=== PATIENT | female | born 1970 | race American Indian/Alaskan Native ===

== ENCOUNTER 2017-07-02 11:59 | Emergency (ER) | payer MEDICAID | END 2017-07-02 12:15 | disposition left against medical advice (07) | LOC: ED 11:59 | DX: I10 Essential (primary) hypertension (principal); Z53.21 Procedure and treatment not carried out due to patient leaving prior to being seen by health care provider ==

== ENCOUNTER 2018-04-13 10:43 | Emergency (ER) | payer MEDICAID ==
[2018-04-13 11:38] LABS: Bacteria,Urine 1+ /HPF (Negative); Bilirubin,Urine NEG (Negative); Blood,Urine NEG (Negative); Color,Urine Yellow (Yellow); Mucus,Urine FEW /HPF; Protein,Urine <15 mg/dL mg/dL (Negative); Urobilinogen,Urine < 2.0 mg/dL (<2.0)
[2018-04-13] MEDS ORDERED: ZOFRAN IM ONE (12:10)
[2018-04-13] MEDS ORDERED: MORPHINE IM ONE (12:10)
--- NOTE | 2018-04-13 12:15 | Emergency Department Report ---
ED Back Pain/Injury HPI - General Chief Complaint: Back Pain/Injury Stated Complaint: LOWER BACK PAIN/PELVIC PAIN Time Seen by Provider: 04/13/18 11:59 Source: patient Limitations: No Limitations - History of Present Illness Initial Comments: Patient is 47 years old female, morbidly obese, history of hypertension. Patient presented to the ER complaining of right flank pain that radiated down to right hip. Patient stated that pain started yesterday all of a sudden while she is sitting. Patient denied any injury. Patient denied hematuria, urinary frequency or dysuria. No nausea or vomiting. MD Complaint: back pain -: Last night Similar Symptoms Previously: No Place: home Radiation: none Severity: moderate Severity scale (0 -10): 6 Quality: sharp Consistency: intermittent Improves With: immobilization Worsens With: movement Associated Symptoms: denies other symptoms - Related Data Home Medications Medication Instructions Recorded Confirmed Last Taken Triamter/Hctz 37.5-25 mg 1 tab PO QDAY 04/10/15 04/15/15 04/15/15 05:00 [Maxzide-25] Previous Rx's Medication Instructions Recorded Last Taken Type HYDROcodone/APAP 5-325 [[place] 1 - 2 each PO Q4HR PRN #30 tablet 04/15/15 Unknown Rx 5/325] Allergies Allergy/AdvReac Type Severity Reaction Status Date / Time No Known Allergies Allergy Verified 04/13/18 10:51 ED Review of Systems ROS: Stated complaint: LOWER BACK PAIN/PELVIC PAIN Other details as noted in HPI Comment: All other systems reviewed and negative Constitutional: denies: chills, diaphoresis, fever, malaise Respiratory: denies: cough, orthopnea, shortness of breath, SOB with exertion Cardiovascular: denies: chest pain, palpitations, dyspnea on exertion, orthopnea Gastrointestinal: denies: abdominal pain, nausea, vomiting, diarrhea, constipation, hematemesis, melena, hematochezia Genitourinary: denies: urgency, dysuria Musculoskeletal: back pain Neurological: denies: headache, weakness, numbness, paresthesias, confusion, abnormal gait ED Past Medical Hx - Past Medical History Previous Medical History?: No Hx Hypertension: Yes Hx Asthma: No (Previous mold exposure, uses occ Albuterol inhaler PRN) Additional medical history: uterine ca - Surgical History Additional Surgical History: hysterectomy - Social History Smoking Status: Never Smoker Substance Use Type: None - Medications Home Medications: Home Medications Medication Instructions Recorded Confirmed Last Taken Type Triamter/Hctz 37.5-25 mg 1 tab PO QDAY 04/10/15 04/15/15 04/15/15 05:00 History [Maxzide-25] HYDROcodone/APAP 5-325 [[place] 1 - 2 each PO Q4HR PRN #30 tablet 04/15/15 Unknown Rx 5/325] ED Physical Exam - General Limitations: No Limitations General appearance: alert, in no apparent distress - Head Head exam: Present: atraumatic, normocephalic, normal inspection - Eye Eye exam: Present: normal appearance - ENT ENT exam: Present: normal exam, normal orophraynx, mucous membranes moist - Neck Neck exam: Present: normal inspection, full ROM. Absent: tenderness, meningismus, lymphadenopathy, thyromegaly - Respiratory Respiratory exam: Present: normal lung sounds bilaterally. Absent: respiratory distress, wheezes, rales, rhonchi, stridor, chest wall tenderness, accessory muscle use, decreased breath sounds, prolonged expiratory - Cardiovascular Cardiovascular Exam: Present: regular rate, normal rhythm, normal heart sounds - GI/Abdominal GI/Abdominal exam: Present: soft, normal bowel sounds. Absent: distended, tende rness, guarding, rebound, rigid, organomegaly, mass, bruit, pulsatile mass, hernia - Extremities Exam Extremities exam: Present: normal inspection, full ROM, normal capillary refill - Back Exam Back exam: Present: normal inspection, full ROM, CVA tenderness (R). Absent: tenderness, CVA tenderness (L), muscle spasm, paraspinal tenderness, vertebral tenderness - Neurological Exam Neurological exam: Present: alert, oriented X3, CN II-XII intact, normal gait, reflexes normal - Psychiatric Psychiatric exam: Present: normal affect, normal mood - Skin Skin exam: Present: warm, intact, normal color ED Course Vital Signs 04/13/18 04/13/18 10:51 14:06 Temperature 97.4 F L Pulse Rate 65 71 Respiratory 20 16 Rate Blood Pressure 177/106 Blood Pressure 138/75 [Left] O2 Sat by Pulse 98 98 Oximetry ED Medical Decision Making - Lab Data Result diagrams: 04/13/18 12:21 04/13/18 12:21 - Radiology Data Radiology results: report reviewed Referring Physician: MONO EDWARD Patient Name: RENETTA BURCH Date of : 1970 Sex: Female Report Date: 2018-04-13 Report Status: Finalized Findings [facility] [address] [place] [address] Cat Scan Report Signed Patient: RENETTA BURCH MR#: [id number] : 1970 Acct:[id number] Age/Sex: 47 / F ADM Date: 04/13/18 Loc: ED Attending Dr: Ordering Physician: MONO EDWARD Date of Service: 04/13/18 Procedure(s): CT abdomen pelvis wo con Accession Number(s): [id number] cc: MONO EDWARD CT ABDOMEN PELVIS WITHOUT CONTRAST: HISTORY: abdominal pain. COMPARISON: none. TECHNIQUE: Helical CT in 1.25mm intervals without IV contrast. Sagittal and coronal reconstructions. FINDINGS: Lung bases: Normal. Liver: There is mild diffuse fatty infiltration throughout the liver. No obvious mass or surface nodularity. Biliary system: Normal. Pancreas: Normal. Spleen: Normal. Kidneys/ureters/bladder: Normal. 1 cm cyst in the mid right kidney is noted. Adrenal glands: Normal. Aorta: Normal. Intestines: Normal. Appendix: Normal. Pelvic viscera: Hysterectomy changes are suspected. No adnexal abnormality. Ascites: None. Adenopathy: None. Musculoskeletal: Mild thoracolumbar spondylosis. IMPRESSION: No acute process is identified. Mild fatty infiltration throughout the liver. 1 cm right renal cyst. Hysterectomy. Transcribed By: TTR Dictated By: CHRISTIAN NICHOLS JR, MD Electronically Authenticated By: CHRISTIAN NICHOLS JR, MD Signed Date/Time: 04/13/181402 DD/ 00 TD/TT: 04/13/181402 - Medical Decision Making Patient is 47 years old female, morbidly obese, history of hypertension. Patient presented to the ER complaining of right flank pain that radiated down to right hip. Patient stated that pain started yesterday all of a sudden while she is sitting. Patient denied any injury. Patient denied hematuria, urinary frequency or dysuria. No nausea or vomiting. Patient stated that she was feeling much better now. Patient received morphine and Zofran. CT abdomen and pelvis is negative for acute finding. I advised the patient to follow up with her primary care physician in the next 2-3 days and to attend to the ER if her symptoms have not improved. Critical care attestation.: If time is entered above; I have spent that time in minutes in the direct care of this critically ill patient, excluding procedure time. ED Disposition Clinical Impression: Acute flank pain, Back pain Disposition: TO HOME OR SELFCARE Is pt being admited?: No Condition: Stable Instructions: Acute Low Back Pain (ED) Referrals: CAROLE VOSS MD [Primary Care Provider] - 3-5 Days
[2018-04-13 12:34] LABS: Basophils # (Auto) 0.1 K/mm3 (0.0-0.1); Basophils % (Auto) 0.7 % (0.0-1.8); Eosinophils # (Auto) 0.2 K/mm3 (0.0-0.4); Eosinophils % (Auto) 2.5 % (0.0-4.3); Hematocrit 41.2 % (30.3-42.9); Hemoglobin 13.2 gm/dl (10.1-14.3); Lymphocytes # (Auto) 2.9 K/mm3 (1.2-5.4); Lymphocytes % (Auto) 39.4 % (13.4-35.0); Mean Corpuscular HGB Conc 32 % (30-34); Mean Corpuscular Volume 81 fl (79-97); Monocytes # (Auto) 0.6 K/mm3 (0.0-0.8); Monocytes % (Auto) 7.7 % (0.0-7.3); Platelet Count 244 K/mm3 (140-440); Red Blood Count 5.11 M/mm3 (3.65-5.03)
[2018-04-13 12:53] LABS: Alanine Aminotransferase 15 units/L (7-56); Albumin 3.6 g/dL (3.9-5); BUN/Creatinine Ratio 18; Bilirubin,Direct < 0.2 mg/dL (0-0.2); Blood Urea Nitrogen 14 mg/dL (7-17); Calcium 8.8 mg/dL (8.4-10.2); Hemolysis Index 21
--- NOTE | 2018-04-13 14:06 | Cat Scan Report ---
CT ABDOMEN PELVIS WITHOUT CONTRAST: HISTORY: abdominal pain. COMPARISON: none. TECHNIQUE: Helical CT in 1.25mm intervals without IV contrast. Sagittal and coronal reconstructions. FINDINGS: Lung bases: Normal. Liver: There is mild diffuse fatty infiltration throughout the liver. No obvious mass or surface nodularity. Biliary system: Normal. Pancreas: Normal. Spleen: Normal. Kidneys/ureters/bladder: Normal. 1 cm cyst in the mid right kidney is noted. Adrenal glands: Normal. Aorta: Normal. Intestines: Normal. Appendix: Normal. Pelvic viscera: Hysterectomy changes are suspected. No adnexal abnormality. Ascites: None. Adenopathy: None. Musculoskeletal: Mild thoracolumbar spondylosis. IMPRESSION: No acute process is identified. Mild fatty infiltration throughout the liver. 1 cm right renal cyst. Hysterectomy.
[2018-04-13 14:07] VITALS: BP 138/75
== END 2018-04-13 15:24 | disposition home or self-care (01) ==
LOC: ED 10:43
DX: R10.9 Unspecified abdominal pain (principal); M54.9 Dorsalgia, unspecified; I10 Essential (primary) hypertension; Z90.710 Acquired absence of both cervix and uterus
CPT/HCPCS: 36415; 74176; 80048; 80076; 81001; 83690; 84703; 85025; 96372; 99284; J2270; J2405

== ENCOUNTER 2018-06-06 14:15 | Emergency (ER) | payer MEDICAID, OTHER ==
[2018-06-06] MEDS ORDERED: ASPIRIN PO ONE (17:55)
--- NOTE | 2018-06-06 18:45 | Emergency Department Report ---
ED Chest Pain HPI - General Chief Complaint: High BP Stated Complaint: CHEST PAIN Time Seen by Provider: 06/06/18 18:36 Source: patient, EMS Mode of arrival: Stretcher Limitations: No Limitations - History of Present Illness Initial Comments: Patient is 47 years old female with history of hypertension. Patient presented to the ER complaining of chest pain on and off for the loss day. Patient described her pain as substernal with no radiation, heaviness in nature. Patient found to have a blood pressure of 164/73. She stated that she is not taking her blood pressure medicine regularly. Patient denied any shortness of breath, fever or chills. Patient stated that she's been coughing for the last week. She stated that she's been taking [id number] cough medicine. MD Complaint: chest pain Onset: during rest Pain Location: substernal Severity scale (0 -10): 0 Quality: heaviness Consistency: now resolved - Related Data Home Medications Medication Instructions Recorded Confirmed Last Taken Triamter/Hctz 37.5-25 mg 1 tab PO QDAY 04/10/15 04/15/15 04/15/15 05:00 [Maxzide-25] Previous Rx's Medication Instructions Recorded Last Taken Type HYDROcodone/APAP 5-325 [[place] 1 - 2 each PO Q4HR PRN #30 tablet 04/15/15 Unknown Rx 5/325] Naproxen [Naprosyn] 500 mg PO BID #14 tablet 04/13/18 Unknown Rx Ondansetron [Zofran Odt] 4 mg PO Q8HR PRN #14 tab.rapdis 04/13/18 Unknown Rx traMADol [Ultram] 50 mg PO Q6HR PRN #14 tablet 04/13/18 Unknown Rx Allergies Allergy/AdvReac Type Severity Reaction Status Date / Time No Known Allergies Allergy Verified 06/06/18 17:54 Heart Score - HEART Score History: Slightly suspicious EKG: Non-specific Age: 45-65 Risk factors: 1-2 risk factors Troponin: < normal limit HEART Score: 3 - Critical Actions Critical Actions: 0-3 pts:0.9-1.7%risk of adverse cardiac event.Candidate for discharge ED Review of Systems ROS: Stated complaint: CHEST PAIN Other details as noted in HPI ED Past Medical Hx - Past Medical History Previous Medical History?: Yes Hx Hypertension: Yes Hx Asthma: No (Previous mold exposure, uses occ Albuterol inhaler PRN) Additional medical history: uterine ca - Surgical History Past Surgical History?: Yes Additional Surgical History: hysterectomy - Social History Smoking Status: Never Smoker Substance Use Type: None - Medications Home Medications: Home Medications Medication Instructions Recorded Confirmed Last Taken Type Triamter/Hctz 37.5-25 mg 1 tab PO QDAY 04/10/15 04/15/15 04/15/15 05:00 History [Maxzide-25] HYDROcodone/APAP 5-325 [[place] 1 - 2 each PO Q4HR PRN #30 tablet 04/15/15 Unk nown Rx 5/325] Naproxen [Naprosyn] 500 mg PO BID #14 tablet 04/13/18 Unknown Rx Ondansetron [Zofran Odt] 4 mg PO Q8HR PRN #14 tab.rapdis 04/13/18 Unknown Rx traMADol [Ultram] 50 mg PO Q6HR PRN #14 tablet 04/13/18 Unknown Rx ED Physical Exam - General Limitations: No Limitations General appearance: alert, in no apparent distress - Head Head exam: Present: atraumatic, normocephalic, normal inspection - Eye Eye exam: Present: normal appearance - ENT ENT exam: Present: normal exam, normal orophraynx, mucous membranes moist - Neck Neck exam: Present: normal inspection, full ROM. Absent: tenderness, meningismus, lymphadenopathy, thyromegaly - Respiratory Respiratory exam: Present: normal lung sounds bilaterally - Cardiovascular Cardiovascular Exam: Present: regular rate, normal rhythm, normal heart sounds - GI/Abdominal GI/Abdominal exam: Present: soft, normal bowel sounds. Absent: distended, tenderness, guarding, rebound, rigid - Extremities Exam Extremities exam: Present: normal inspection, full ROM, normal capillary refill. Absent: pedal edema, calf tenderness - Back Exam Back exam: Present: normal inspection, full ROM. Absent: tenderness, CVA tenderness (R) - Neurological Exam Neurological exam: Present: alert, oriented X3, CN II-XII intact, normal gait, reflexes normal - Skin Skin exam: Present: warm, intact, normal color ED Course Vital Signs 06/06/18 06/06/18 06/06/18 17:46 18:58 19:00 Temperature 98.1 F Pulse Rate 65 63 Respiratory 16 16 16 Rate Blood Pressure 164/73 Blood Pressure 162/91 [Left] O2 Sat by Pulse 100 99 Oximetry ED Medical Decision Making - Lab Data Result diagrams: 06/06/18 18:47 06/06/18 18:47 - EKG Data -: EKG Interpreted by Me EKG shows normal: sinus rhythm Rate: normal - EKG Data Interpretation: no acute changes - Radiology Data Radiology results: image reviewed Chest x-ray is unremarkable. - Medical Decision Making Patient is 47 years old female with history of hypertension. Patient presented to the ER complaining of chest pain on and off for the loss day. Patient described her pain as substernal with no radiation, heaviness in nature. Patient found to have a blood pressure of 164/73. She stated that she is not taking her blood pressure medicine regularly. Patient denied any shortness of breath, fever or chills. Patient stated that she's been coughing for the last week. She stated that she's been taking [id number] cough medicine. Patient still denying any chest pain. Labs reviewed and negative. Troponin is negative so far. Chest x-ray is negative also. Critical care attestation.: If time is entered above; I have spent that time in minutes in the direct care of this critically ill patient, excluding procedure time. ED Disposition Clinical Impression: Chest pain, Acute bronchitis Disposition: TO HOME OR SELFCARE Is pt being admited?: No Condition: Stable Instructions: Chest Pain (ED), Acute Bronchitis (ED) Referrals: JOSESITO BARCENAS MD [Primary Care Provider] - 3-5 Days
[2018-06-06 19:06] LABS: Basophils % (Auto) 0.5 % (0.0-1.8); Eosinophils # (Auto) 0.2 K/mm3 (0.0-0.4); Eosinophils % (Auto) 2.4 % (0.0-4.3); Hematocrit 38.8 % (30.3-42.9); Hemoglobin 12.6 gm/dl (10.1-14.3); Lymphocytes # (Auto) 3.7 K/mm3 (1.2-5.4); Lymphocytes % (Auto) 40.8 % (13.4-35.0); Mean Corpuscular HGB Conc 32 % (30-34); Mean Corpuscular Volume 79 fl (79-97); Monocytes # (Auto) 0.5 K/mm3 (0.0-0.8); Platelet Count 264 K/mm3 (140-440); Red Blood Count 4.89 M/mm3 (3.65-5.03); Red Cell Distribution Width 16.2 % (13.2-15.2)
[2018-06-06 19:21] LABS: BUN/Creatinine Ratio 14; Blood Urea Nitrogen 10 mg/dL (7-17); Calcium 8.6 mg/dL (8.4-10.2); Hemolysis Index 0
[2018-06-06] MEDS ORDERED: CATAPRES PO ONE (19:54)
[2018-06-06] MEDS ORDERED: TYLENOL PO ONE (19:54)
[2018-06-06 21:01] VITALS: BP 179/88
--- NOTE | 2018-06-06 21:12 | XRay Report ---
PROCEDURE: XR CHEST 1V AP TECHNIQUE: PA and lateral chest radiographs were obtained. HISTORY: Chest Pain COMPARISONS: None. FINDINGS: Heart: Normal. Mediastinum/Vessels: Normal. Lungs/Pleural space: Lungs are expanded. There are no infiltrates, effusions or pneumothoraces.. Bony thorax: No acute osseous abnormality. IMPRESSION: Normal heart and lungs.. This document is electronically signed by Shon Hardin MD., June 06 2018 09:10:28 PM ET
== END 2018-06-06 21:38 | disposition home or self-care (01) ==
LOC: ED 14:15
DX: R07.2 Precordial pain (principal); J20.9 Acute bronchitis, unspecified; I10 Essential (primary) hypertension; Z90.710 Acquired absence of both cervix and uterus
CPT/HCPCS: 36415; 71045; 80048; 84484; 85025; 93005; 93010; 99285